=== PATIENT | male | born 1990 | race Caucasian/White ===

== ENCOUNTER 2023-04-10 07:46 | Outpatient (CLI) | payer OTHER ==
--- NOTE | 2023-04-10 13:14 | MRI Report ---
PROCEDURE: WRIST WO - LT INDICATIONS: LEFT WRIST FX TECHNIQUE: Noncontrast coronal T1 spin echo, proton density fast spin echo and T2 fast spin echo with fat satura tion; coronal 3-D gradient echo, axial T1 spin echo and T2 fast spin echo with fat saturation, sagitt al T1 spin echo through the wrist. COMPARISON: None. FINDINGS: Image quality: Excellent. Bones and cartilage: There is a transverse fracture of the mid to distal scaphoid with surrounding os seous edema. No definite osseous bridging is seen across the fracture line. Additionally, there is a linear T1 hypointensity within the proximal pole of the scaphoid located parallel to the distal fract ure that could represent a second nondisplaced fracture. No MR evidence of avascular necrosis of the proximal pole. There is mild dorsal tilting of the lunate that could represent early dorsal intercala julianne segment instability. No proximal migration of the capitate is seen. Carpal ligaments: The dorsal and volar bands of the scapholunate ligament appear to remain in continu ity without widening of the scapholunate interval. The lunotriquetral ligament is intact. On sagittal images, the pisohamate ligament appears intact. Triangular fibrocartilage complex: The triangular fibrocartilage appears intact. Tendons and soft tissues: The median nerve appears mildly thickened. There is mild volar bowing of t he flexor retinaculum. The flexor tendons appear normal within the carpal tunnel.. The ulnar nerve a ppears normal within Guyon's canal. All six extensor tendon compartments demonstrate normal morpholo gy, without pathologic tendon sheath fluid. No soft tissue ganglion cysts. IMPRESSION: 1.Comminuted fracture of the scaphoid with prominent transverse component at the mid to distal pole w ith surrounding osseous edema. No definite osseous bridging is seen across the fracture line. There a ppears to be an additional nondisplaced transverse fracture line posterior to the proximal pole. No s igns of osteonecrosis. 2.Mild dorsal tilting of the lunate could indicate early dorsal intercalated segment instability. 3.Mild thickening of the median nerve and volar bowing of the flexor retinaculum are nonspecific but can be seen in setting of median neuritis/carpal tunnel syndrome. Recommend correlation with neurolog ic exam findings. Reviewed by: Osvaldo Quinones MD on 04/10/2023 1:12 PM PDT Approved by: Osvaldo Quinones MD on 04/10/2023 1:12 PM PDT Station ID: [id number]
== END 2023-04-10 07:47 | disposition home or self-care (01) ==
LOC: DI 07:46
PROVIDERS: ATTEND Orthopaedic Surgery
DX: S62.025K Nondisplaced fracture of middle third of navicular [scaphoid] bone of left wrist, subsequent encounter for fracture with nonunion (principal)

== ENCOUNTER 2023-06-18 06:15 | Day surgery (SDC) | payer OTHER ==
[2023-06-18] MEDS ORDERED: CELECOXIB 100 MG CAPSULE PO ONE (06:25)
[2023-06-18] MEDS ORDERED: ACETAMINOPHEN 500 MG TABLET PO ONE (06:26)
[2023-06-18] MEDS ORDERED: ceFAZolin 2 GM VIAL ONE (06:26)
[2023-06-18] MEDS ORDERED: LACTATED RINGERS 1,000 ML IV ONE ×2 (06:27→11:08)
[2023-06-18] MEDS ORDERED: PROPOFOL 500 MG/50 ML 500 MG/50 ML VIAL ONE (06:51)
[2023-06-18] MEDS ORDERED: SODIUM CHLORIDE 0.9% 10 ML VIAL IVP ONE (06:52)
[2023-06-18] MEDS ORDERED: ROPIVACAINE 0.5% PF 20 ML VIAL ONE (06:52)
[2023-06-18] MEDS ORDERED: MIDAZOLAM 2 MG/2 ML VIAL ONE (06:55)
[2023-06-18] MEDS ORDERED: fentaNYL 100 MCG/2 ML VIAL ONE (06:55)
[2023-06-18] MEDS ORDERED: LIDOCAINE 1%-EPI 1:100000 20 ML MDV ONE (06:58)
[2023-06-18] MEDS ORDERED: BUPIVACAINE 0.25% PF 30 ML VIAL ONE (06:58)
[2023-06-18] MEDS ORDERED: LIDOCAINE-PF 2% 10 ML AMP SUBQ ONE (07:15)
[2023-06-18] MEDS ORDERED: ePHEDrine 50 MG/ML VIAL IVP PRN (08:11)
[2023-06-18] MEDS ORDERED: ONDANSETRON 4 MG/2 ML VIAL IVP PRN ×2 (08:11→11:14)
[2023-06-18] MEDS ORDERED: ATROPINE ABBOJECT 1 MG/10 ML SYRINGE IVP PRN (08:11)
[2023-06-18] MEDS ORDERED: NALOXONE 0.4 MG/ML VIAL IVP PRN (08:11)
[2023-06-18] MEDS ORDERED: HYDROmorphone 0.5 MG/0.5 ML SYRINGE IVP PRN (08:11)
[2023-06-18] MEDS ORDERED: fentaNYL 100 MCG/2 ML VIAL IVP PRN (08:11)
--- NOTE | 2023-06-18 08:11 | ANESTHESIA ---
Pre-Anesthesia VS, & Labs - Diagnosis nondisplaced, non union left scaphoid - Procedure left scaphoid orif Vital Signs: Temp Pulse Resp BP Pulse Ox O2 Flow Rate 36.0 C L 53 L 16 124/82 H 96 0 06/18/23 06:44 06/18/23 06:44 06/18/23 06:44 06/18/23 06:44 06/18/23 06:44 06/18/23 06:44 Height: 5 ft 9 in Weight (kg): 107 kg Body Mass Index: 34.8 BMI Classification: Obese - NPO >8 hours - Lab Results Lab results reviewed: Yes Home Medications and Allergies Home Medications: Ambulatory Orders Dextroamphetamine/Amphetamine [Adderall 10 mg Tablet] 10 mg PO DAILY 06/16/23 Dextroamphetamine/Amphetamine [Adderall 30 mg Tablet] 35 mg PO DAILY 06/16/23 Dextroamphetamine/Amphetamine [Adderall 10 mg Tablet] 10 mg PO DAILY 06/16/23 Dextroamphetamine/Amphetamine [Adderall 30 mg Tablet] 35 mg PO DAILY 06/16/23 Allergies/Adverse Reactions: Allergies Allergy/AdvReac Type Severity Reaction Status Date / Time No Known Drug Allergies Allergy Verified 06/16/23 15:41 Anes History & Medical History - Anesthetic History Anesthesia Complications: reports: No previous complications Family history of Anesthesia Complications: Denies Family history of Malignant Hyperthermia: Denies - Medical History Cardiovascular: reports: None Pulmonary: reports: None Gastrointestinal: reports: None Urinary: reports: None Neuro: reports: None Musculoskeletal: reports: Osteoarthritis Endocrine/Autoimmune: reports: None Skin: reports: None Smoking Status: Never smoker Psychosocial: reports: No issues indicated - Surgical History General: reports: Appendectomy Orthopedic: reports: ACL reconstruction, Other Exam General: Alert, Oriented x3, Cooperative Dental: WNL Mouth Opening: Greater than 4 Fingerbreadths Neck Mobility: Normal Mallampati classification: I Thyromental Distance: 4-6 cm Respiratory: Lungs clear Cardiovascular: Regular rate Plan Anesthesia Type: General, Supraclavicular Block Regional Block: Per Surgeon's request for Post Op pain control Consent for Procedure(s) Verified and Reviewed: Yes Code Status: Attempt Resuscitation ASA classification: 1-Healthy patient Is this case an emergency?: No
[2023-06-18] MEDS ORDERED: LACTATED RINGERS 1,000 ML IV SCH (09:00)
--- NOTE | 2023-06-18 10:55 | OPERATIVE REPORT ---
Operative Report - General Procedure Date: 06/18/23 Planned Procedure: Open reduction internal fixation scaphoid fracture nonunion left wrist with autogenous distal left radius bone graft Pre-Op Diagnosis: Scaphoid nonunion left wrist Procedure Performed: Open reduction internal fixation scaphoid nonunion left wrist utilizing Arthrex 3.5 mm headless compression screw, autogenous distal left radius bone graft Post Op Diagnosis: Same as preoperative diagnosis - Procedure Note Primary Surgeon: Sage Brown MD Secondary Surgeon: Harini Zayas PAC Anesthesia Provider: Dandre Scott CRNA Anesthesia Technique: General ET tube, Regional block Estimated Blood Loss (mL): 25 Indications: 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 He was identified as having a possible fracture left scaphoid initially but this was never treated. He developed late onset chronic wrist pain, well localized to the radial aspect of his left wrist that is progressively worsened. His exam showed mild decreased wrist motion, tenderness to snuffbox, otherwise normal exam. His x-rays and MRI scan both confirmed scaphoid nonunion. There is no sign of avascular necrosis of the proximal pole. An informed consent was obtained at the office for the procedure to repair a left scaphoid nonunion with autogenous bone graft from left distal radius Findings: There was a scaphoid nonunion with gross motion at fracture site of the left scaphoid. There was some shortening and angulation at the fracture site Complications: . None - Other Other Information/Narrative: After satisfactory anesthesia had been achieved, the patient was placed supine on the operating room table and the left arm was placed over a arm extension table. A pneumatic tourniquet was applied to the proximal left arm over cast padding. The left upper extremity was prepped and draped in a sterile manner in the usual fashion. A sterile drape was applied over the C arm. A timeout procedure was performed by the entire operating room team and all were in agreement. The left upper extremity was exsanguinated and the pneumatic tourniquet was elevated to 200 mmHg. An incision was made proximal to the wrist flexor crease overlying the flexor carpi radialis. The incision was extended distally and angled over the scaphoid tubercle into the thenar muscles. This sheath of the flexor carpi radialis was opened. The flexor carpi radialis was retracted in a radial direction. The floor of the flexor carpi radialis was opened from proximal to distal. The scaphoid trapezial joint was identified. The pronator space was identified. Self-retaining wheat [place] retractors were inserted exposing the wrist capsule. The radial scaphoid capitate ligament was incised longitudinally. 0.045 K wires were inserted perpendicular to the scaphoid after capsular flaps were elevated to expose the fracture. The K wire joysticks were inserted to the Proximal and distal poles.The fracture site nonunion was exposed with a small rongeur and curettes were used to expose fresh bleeding bone. This led to a gap particularly with correction of the angulation using the joysticks as levers. The pronator quadratus was split and elevated to expose the volar aspect of the left distal radius. The Arthrex 5 mm bone graft harvester was utilized to make an opening and this was enlarged to about 1 cm with a rongeur. A curette was used to harvest cancellous bone for bone grafting at the fracture site nonunion. The donor site of the distal radius was backfilled with freeze dried bone graft and packed with a bone tamp. The cancellous bone from the distal radius was then applied to the fracture nonunion but the fracture slightly distracted. Multiple layers of bone graft were applied to the fracture site and compressed with a bone tamp. The scaphoid trapezial joint and trapezial ridge were exposed and the trapezial ridge was removed with a rongeur to facilitate screw insertion from the distal pole of the scaphoid. The Arthrex headless cannulated screw system was utilized. A guidepin was inserted using the C arm image intensifier from distal to proximal using biplanar and oblique imaging. The first K wire was a derotational guidepin and the second K wire was used to position and the approximate midline of the scaphoid from distal to proximal. The length of the guidepin was measured and a screw that was approximately 6 mm shorter was utilized. The K wire was advanced slightly into the distal radius. Drilling was then performed over the cannulated guidepin and a 26 mm headless 3.5 mm Arthrex screw was inserted. This provided excellent fixation. When Pressing on the fracture site with a bone tamp, there is no motion at the fracture site.The final C arm images showed good alignment of the fracture and scaphoid as well as the internal fixation. The tourniquet was deflated after 2 hours. The radioscaphocapitate ligament was repaired with 0 Vicryl suture. The skin was closed with a 3-0 Monocryl subcuticular suture, Dermabond, Steri-Strips. A well-padded short arm splint was applied. He did receive 2 g of Ancef intravenously prior to the procedure. A physician internet marketing assistant was medically necessary to help with prepping and draping, positioning, protection of vital structures, assistance during the procedure inc luding wound closure, dressing and/or splinting.
[2023-06-18] MEDS ORDERED: oxyCODONE 5 MG TABLET PO PRN (11:14)
--- NOTE | 2023-06-18 12:11 | ANESTHESIA POST OP EVALUATION ---
Anesthesia Post Eval - Post Anesthesia Eval Vitals: Last Vital Signs Temp 36.3 C L 06/18/23 11:40 Pulse 82 06/18/23 11:40 Resp 14 06/18/23 11:40 BP 118/76 06/18/23 11:40 Pulse Ox 95 06/18/23 11:40 O2 Flow Rate 0 06/18/23 06:44 CV Function Including HR & BP: Stable Pain Control: Satisfactory Nausea & Vomiting: Negative Mental Status: Baseline Respiratory Status: Airway Patent Hydration Status: Satisfactory Anesthesia Complications: None
[2023-06-18 12:39] VITALS: BP 116/72
[2023-06-18] MEDS ORDERED: ACETAMINOPHEN 500 MG TABLET PO PRN (13:00)
[2023-06-18] MEDS ORDERED: CELECOXIB 100 MG CAPSULE PO PRN (18:42)
--- NOTE | 2023-06-19 08:37 | XRAY Report ---
PROCEDURE: OR C-Arm Procedure INDICATIONS: LEFT ORIF SCAPHOID FLUORO TIME: 0:26 min TECHNIQUE: 2 spot fluoroscopic intraoperative images of the wrist. COMPARISON: Left wrist MRI 04/10/2023 FINDINGS: Intraoperative images demonstrate fixation of the previously seen scaphoid fracture with a single hea dless cannulated fully threaded Acutrak type screw. Overall alignment is not significantly changed. O verlying metal retractors are noted. IMPRESSION: Status post internal fixation of previously seen scaphoid fracture with expected intraoperative findi ngs Reviewed by: Osvaldo Quinones MD on 06/19/2023 8:36 AM PDT Approved by: Osvaldo Quinones MD on 06/19/2023 8:36 AM PDT Station ID: [id number]
== END 2023-06-18 06:16 | disposition home or self-care (01) ==
LOC: SDS 06:15
PROVIDERS: ATTEND Orthopaedic Surgery
DX: S62.002A Unspecified fracture of navicular [scaphoid] bone of left wrist, initial encounter for closed fracture (principal); W19.XXXA Unspecified fall, initial encounter; E66.9 Obesity, unspecified; Z68.34 Body mass index [BMI] 34.0-34.9, adult
CPT/HCPCS: 25440; A9270; C1713; J2795; J7120

== ENCOUNTER 2023-06-30 08:00 | Outpatient (CLI) | payer OTHER ==
--- NOTE | 2023-06-30 13:45 | XRAY Report ---
PROCEDURE: Wrist 4 View LT INDICATIONS: LEFT SCAPHOID ORIF TECHNIQUE: 3 views of the wrist were acquired. COMPARISON: None. FINDINGS: Bones: No fractures or dislocations. ORIF of the scaphoid has been performed. Alignment is nearly an atomic. No suspicious bony lesions. Soft tissues: There are new calcifications at the volar aspect of the distal radius. IMPRESSION: 1. Postsurgical sequelae. 2. Soft tissue calcifications at the anterior aspect of the distal radius, presumably secondary to po stsurgical sequelae such as dystrophic calcification versus calcified hemorrhagic products. Reviewed by: Leonard Shirley MD on 06/30/2023 1:44 PM PDT Approved by: Leonard Shirley MD on 06/30/2023 1:44 PM PDT Station ID: [id number]
== END 2023-06-30 23:59 | disposition home or self-care (01) ==
LOC: DI.WOS 08:00
PROVIDERS: ATTEND Orthopaedic Surgery
DX: S62.025K Nondisplaced fracture of middle third of navicular [scaphoid] bone of left wrist, subsequent encounter for fracture with nonunion (principal)

== ENCOUNTER 2023-07-31 08:00 | Outpatient (CLI) | payer OTHER ==
--- NOTE | 2023-07-31 13:18 | XRAY Report ---
PROCEDURE: Wrist 4 View LT INDICATIONS: LEFT WRIST/SCAPHOID ORIF TECHNIQUE: 4 views of the wrist were acquired. COMPARISON: Left wrist radiographs 06/30/2023, 02/14/2023 FINDINGS: A screw is present transfixing the previously demonstrated scaphoid waist fracture. Fracture alignmen t is similar to before. Fracture conspicuity is similar to minimally decreased. Redemonstrated calcif ication about the volar aspect of the distal radius, nonspecific. IMPRESSION: Similar alignment of the scaphoid post fixation. Reviewed by: Osvaldo Hernandez MD on 07/31/2023 1:16 PM PDT Approved by: Osvaldo Hernandez MD on 07/31/2023 1:16 PM PDT Station ID: [id number]
== END 2023-07-31 23:59 | disposition home or self-care (01) ==
LOC: DI.WOS 08:00
PROVIDERS: ATTEND Orthopaedic Surgery
DX: S62.025K Nondisplaced fracture of middle third of navicular [scaphoid] bone of left wrist, subsequent encounter for fracture with nonunion (principal)